=== PATIENT | male | born 1940 | race Caucasian/White ===

== ENCOUNTER 2017-01-09 06:17 | Observation (INO) | payer OTHER ==
[2017-01-09] VITALS (11 sets, daily range): BP systolic 110–167; BP diastolic 55–85; PULSE 54–78; TEMP 36.4–36.6; O2SAT 93–98; Ht 172.7 cm; Wt 118.2 kg
[~2017-01-09] VITALS: Ht 172.7 cm; Wt 118.2 kg
[2017-01-09] MEDS ORDERED: METO50TA16 PO (06:34)
[2017-01-09] MEDS ORDERED: TRAM-10 PO (06:34)
[2017-01-09] MEDS ORDERED: FOSI40TA2 PO (06:34)
[2017-01-09] MEDS ORDERED: HYG/25 PO (06:34)
[2017-01-09] MEDS ORDERED: ASPI81TA28 PO (06:34)
[2017-01-09] MEDS ORDERED: PRAV20TA PO (06:34)
[2017-01-09] MEDS ORDERED: MIDAZOLAM HCL 1 MG/ML 2ML VIAL ONE ×2 (08:22→10:17)
[2017-01-09] MEDS ORDERED: FENTANYL CITRATE INJ 50 MCG/1 ML 2 ML VIAL ONE (08:23)
[2017-01-09] MEDS ORDERED: HEPARIN SOD (PORCINE) 1000 UNIT/ML 10 ML VIAL ONE ×2 (09:09→10:16)
[2017-01-09] MEDS ORDERED: NiCARDipine HCL INJ 2.5 MG/ML 10 ML AMP ONE (09:09)
[2017-01-09] MEDS ORDERED: NITROGLYCERIN/D5W 100MCG/ML 20ML SYR ONE (09:09)
[2017-01-09] MEDS ORDERED: ADENOSINE IV SOLN 3 MG/ML 20 ML VIAL ONE (09:31)
--- NOTE | 2017-01-09 09:46 | Procedure Note ---
Pre-Mod Sedation Assessment General Date of Moderate Sedation: January 09, 2017. Vital Signs: Vital Signs Past 12 Hours Date Time Temp Pulse Resp B/P Pulse Ox O2 Delivery O2 Flow Rate FiO2 01/09/17 07:31 36.5 78 16 167/85 96 Room Air Review Cardiovascular: regular rate, rhythm, no edema, no gallop, no murmur Abdomen: normal bowel sounds, non tender, soft Lungs: chest non-tender, lungs clear, normal breath sounds Pre-Sedation Airway Assessment Oral Cavity: Dentures Short Thick Neck: Yes Hx of Sleep Apnea: Yes Smoking Status: Former Smoker Mallampati Classification: Class III ASA Classification: Class III Procedure Planning Contraindications-for Mod Sed: None Yes Notes The planned sedation has been discussed with the patient and consent obtained. I have identified the patient, determined the appropriateness of sedation and have assessed the patient immediately prior to the procedure. All medicine(s) and interventions are by my order.
--- NOTE | 2017-01-09 09:47 | Procedure Note ---
Post-Mod Sedation Assessment General Date of Moderate Sedation January 09, 2017. Vital Signs: Vital Signs Past 12 Hours Date Time Temp Pulse Resp B/P Pulse Ox O2 Delivery O2 Flow Rate FiO2 01/09/17 07:31 36.5 78 16 167/85 96 Room Air Review - Discharge Criteria Vital Signs Stable: Yes Alert/Oriented/Conversant: Yes Returned to Baseline Mental St: N/A Nausea Absent/Minimal: Yes Pain/Discomfort/Absent/Minimal: Yes Normal/Baseline Respirations: Yes Active Bleeding?: No Pt Received D/C Instructions: N/A Prescriptions Given: None Specific Proced. D/C Criteria Distal Pulses Present (Cardiac: Yes Groin site assessed-Card Cath: Yes Voided Prior To Discharge: N/A Discharged Patients Adult Escort/Transportation: N/A
--- NOTE | 2017-01-09 09:59 | Cardiac Catheterization ---
Procedure Note Procedure Date January 09, 2017. Pre-Procedure Diagnosis Angina, Cardiomyopathy AUC Score 8 Post-Procedure Diagnosis Severe CAD Procedure(s) Performed Coronary Angiography, Left Heart Cath (Start time 0838, stop time 0935, Moderate Sedation) Military Police Officer Dr. Orta Edger Hand(s) Todd AIRCRAFT MAINTENANCE MANAGER, Sedation RN Jaci Nickerson Estimated Blood Loss 5cc Medication(s) Fentanyl, Heparin, Nicardipine, Nitroglycerin, Versed, Lidocaine 1% Summary of Findings 99% prox - ostial OM2 Sequential 70% distal Lcx and proximal LPDA stenosis Proximal LAD Stent patent with diffuse 20% ISR Diffuse severe mid to distal LAD (60-90%) Known anterior and apical scar. Hemodynamics Rest Ao: 113/52/78 Final Ao: 126/57/86 LV: 123/5/17 Recommendations PCI without planned CABG Specimens None Radiation Exposure (mGy) 1905 Contrast (mls) 65 Fluids (cc crystalloids) 163 Procedural Complication(s) None Disposition Patient remained in cathlab for PCI ACC Data Cardiac Status Clinical evaluation leading to the procedure CAD Presntation: Unstable angina Anginal Classification: CCS III Heart Failure: Yes, NYHA Class: CCS III Cardiogenic Shock w/in 24Hrs: No Cardiac Arrest w/in 24Hrs: No Imaging studies past 6 months: Yes Stress studies past 6 months: No Coronary Anatomy Dominant: Left Left Main (% Stenosis): Normal LAD (% Stenosis): Ostial (0%), Proximal (Patent stent with diffuse 20% ISR), Mid (Severe diffuse mid to distal disease (60-90%)) D1 (% Stenosis): Ostial (0%), Proximal (10%), Mid (10%), Distal (10%) D2 (% Stenosis): Ostial (20%), Proximal (10%), Mid (10%), Distal (10%) Circumflex (% Stenosis): Ostial (0%), Proximal (20%), Mid (30%), Distal (60-70% ) OM1 (% Stenosis): Ostial (10%), Proximal (30% ), Mid (10%), Distal (10%) OM2 (% Stenosis): Ostial (99%), Proximal (99%) L PL1 (% Stenosis): Normal L PDA (% Stenosis): Proximal (70%), Mid (20%), Distal (10%) RCA (% Stenosis): Ostial (small non-dominant, with diffuse luminal irregularities (10%)), Mid (30%) Diagnostic Status: Elective Closure Device Percutaneous Entry Location: Femoral (Changed to femoral access due to radial artert spasm) Recommendations: PCI without planned CABG Intraprocedure Events Significant Dissection: No Perforation: No
[2017-01-09] MEDS ORDERED: CLOPIDOGREL BISULFATE 300 MG TAB PO ONE (10:56)
[2017-01-09] MEDS ORDERED: SODIUM CHLORIDE 0.9% 1000ML 1,000 ML IV SCH (11:15)
[2017-01-09] MEDS ORDERED: ONDANSETRON INJ 2 MG/ML 2 ML VIAL IV PRN ×2 (11:15→12:15)
[2017-01-09] MEDS ORDERED: ACETAMINOPHEN 325 MG TAB PO PRN ×2 (11:15→12:15)
[2017-01-09] MEDS ORDERED: TRAMADOL HCL 50 MG TAB PO PRN (11:15)
--- NOTE | 2017-01-09 11:36 | Cardiac Catheterization ---
Procedure Note Procedure Date January 09, 2017. Pre-Procedure Diagnosis CAD, Cardiomyopathy AUC Score 7 Post-Procedure Diagnosis Severe CAD, Successful PCI Procedure(s) Performed Drug Eluting Stent Records Management Specialist Dr. Viveros Soil Field Technician(s) Todd Estimated Blood Loss 20 Medication(s) Clopidogrel, Fentanyl, Heparin, Nitroglycerin, Versed Summary of Findings Indication: Exertional angina/Cardiomyopathy Access: 6Fr Right Femoral Artery Catheters: EBU 3.5 guide Findings: For full details of patients coronary anatomy please see cath report by Dr. Orta. In brief patient noted to have a small OM2 with a 99% stenosis which filled distally via left to left collaterals. Also noted to have sequential 70% lesions in his distal circumflex and L-PDA. -- PCI -- Antithrombotic therapy: Heparin Procedure: LM cannulated with EBU 3.5 guide Prowater wire passed across distal circumflex/PDA lesions into distal vessel Attempted to pass a wire into OM2 but unable to pass a BMW, whisper or Customer Training Specialist 50 wire. Decision made to forgo intervention on OM2 PDA/circumflex lesions predilated with 2.0 compliant balloon Dilated PDA lesion stented with 2.5 x 18 Resolute FOREST Dilated distal circumflex lesion stented with a 2.75 x 18 Resolute FOREST Stents post-dilated with 3.0 noncompliant balloon IC vasodilators administered for spasm Post procedure PRATEEK 3 flow, stent well expanded with minimal residual stenosis and no apparent cardiac complications. Arterial Closure: AngioSeal Summary: 1. Successful PCI of distal circumflex and L-PDA with 2 FOREST (2.75 x 18, 2.5 x 18 Resolute; post-dilated with 3.0 balloon) Recommendations: To PCU for continued monitoring Loaded with Clopidogrel 600 mg in petroleum laboratory technician Continue dual-antiplatelet therapy with ASA/Clopidogrel for at least 6 months DIOMEDES, Beta-paco, Statin per Dr. Orta. Consult cardiac Rehab Hemodynamics Rest Ao: -- Final Ao: -- LV: -- Recommendations PCI without planned CABG Specimens None Radiation Exposure (mGy) 7842 Contrast (mls) 295 Fluids (cc crystalloids) 278 Drains none Anesthesia moderate Procedural Complication(s) None Disposition PCU ACC Data Cardiac Status Clinical evaluation leading to the procedure CAD Presntation: Stable angina Anginal Classification: CCS III Heart Failure: Yes, NYHA Class: CCS II Cardiogenic Shock w/in 24Hrs: No Cardiac Arrest w/in 24Hrs: No Imaging studies past 6 months: Yes Stress studies past 6 months: No Standard Exercise Stress Test: No Stress Echocardiogram: No Stress Testing w/SPECT MPI: No Cardiac CTA: No Coronary Anatomy Dominant: Left Circumflex (% Stenosis): Distal (70) OM2 (% Stenosis): Ostial (99) L PDA (% Stenosis): Mid (70) Diagnostic Physician's Name: Saulo Orta DO Status: Elective Closure Device Percutaneous Entry Location: Radial Closure Device: Angio-Seal Recommendations: PCI without planned CABG PCI Indication: Stable Angina, Angina despite med therapy Lesion Segment Name: Distal circumflex Culprit Artery: Yes Stenosis Prior to Rx (%): 70 Chronic Total Occlusion: No IVUS: No FFR: No Pre-Procedure PRATEEK Flow: 3 Previously Treated Lesion: No Lesion Complexity: Non-High/Non-C Lesion Length (mm): 12 Thrombus Present: No Bifurcation Lesion: No Guidewire Across Lesion: Yes Guidewire: Stenosis Post-Procedure (%): 5 Post-Procedure PRATEEK Flow: 3 Device(s) Deployed: Yes Intraprocedure Events Significant Dissection: No Perforation: No
[2017-01-09] MEDS ORDERED: PATIENT'S ALLERGY INFO NEEDS ENTERED SCH (12:15)
--- NOTE | 2017-01-09 12:59 | HISTORY & PHYSICAL EXAMINATION ---
DATE OF ADMISSION: 01/09/2017 PRIMARY CARE PHYSICIAN: Dr. Fxo from [facility]. CHIEF COMPLAINT: Increasing shortness of breath on exertion for the last 1 month or so, status post cardiac catheterization and PCI. HISTORY OF PRESENT COMPLAINT: He is a 76-year-old male, obese with significant past medical history including ischemic cardiomyopathy with an EF of 35%, history of heart attack in the past and CAD. Apparently has been complaining of shortness of breath on exertion for the last 1 month or so. He gets very short of breath even after walking 50 feet and he has to take a rest. He does have some epigastric pain but denies to have any abdominal pain. He was seen by Dr. Orta the textile chemist and advised cardiac catheterization. He underwent cardiac catheterization this morning and he was noted to have severe CAD and he had 2 stents placed in his left PDA. He was advised to stay overnight and may be going home tomorrow. When asking questions to him he denies to have any chest pain at rest and exertion has some shortness of breath and epigastric pain but no nausea, no vomiting. He denies to have any increasing swelling of the legs, but he has weight gain about 7 pounds for the last 1-2 weeks. No fever, chills or rigors. No problem with urine and/or bowel habit. PAST MEDICAL HISTORY: Significant for history of heart attack in , history of cardiac stent in 2001 with ischemic cardiomyopathy with an EF documented last time 35% and chronic coronary artery disease. PAST SURGICAL HISTORY: Nothing significant except cardiac stent in 2001. FAMILY HISTORY: Nothing significant. SOCIAL HISTORY: He is . He lives with his . He does not smoke and does not drink and he has been reasonably ambulant. ALLERGIES: NKDA. MEDICATIONS: As an outpatient, he has been on aspirin 81 mg daily, [place] 25 mg tablet half tablet daily, Monopril 40 mg daily, Lopressor 50 mg twice daily, Pravachol 40 mg daily, Ultram 50 mg q. 6 hourly as needed. REVIEW OF SYSTEMS: Other systematic review is unremarkable except as mentioned in H\T\P. PHYSICAL EXAMINATION: GENERAL: On examination on the medical floor, he was not having any acute distress. VITAL SIGNS: Temperature 36.6, pulse of 62, blood pressure 122/64, saturating 92% on room air. HEAD, EYES, EARS, NOSE, AND THROAT: Unremarkable. NECK: Supple. No JVD, no bruit. CHEST: Clear to auscultate bilaterally. HEART: S1, S2. No murmur appreciated. ABDOMEN: Distended, soft, mildly tender in the epigastrium. No organomegaly. Bowel sounds present. EXTREMITIES: 1+ edema bilaterally. CENTRAL NERVOUS SYSTEM: Alert, awake, oriented x3 and no focal sensory and/or motor deficit appreciated. LABORATORY DATA: Noted today activated coagulation time is 2:29. We will get the usual labs today CBC, PRP, INR, magnesium, chest x-ray and EKG. ECHO:: on 01/01/17The primary indication after review was deemed appropriate and the examination was performed. Mildly dilated LV chamber size with normal wall thickness. Severely reduced LV systolic function, EF 1520%. Akinesis of the anteroseptal, anterior and apical fang, otherwise moderate global hypokinesis. No apical thrombus present. Grade II diastolic dysfunction. The right ventricular cavity is mildly dilated. The right ventricular systolic function is moderately reduced . Poorly visualized valvular structures but no significant stenosis or regurgitation by Doppler. Mild left atrial enlargement. Cardiac Cath::LM cannulated with EBU 3.5 guide Prowater wire passed across distal circumflex/PDA lesions into distal vessel Attempted to pass a wire into OM2 but unable to pass a BMW, whisper or [employer] 50 wire. Decision made to forgo intervention on OM2 PDA/circumflex lesions predilated with 2.0 compliant balloon Dilated PDA lesion stented with 2.5 x 18 Resolute FOREST Dilated distal circumflex lesion stented with a 2.75 x 18 Resolute FOREST Stents post-dilated with 3.0 noncompliant balloon IC vasodilators administered for spasm Post procedure PRATEEK 3 flow, stent well expanded with minimal residual stenosis and no apparent cardiac complications. IMPRESSION AND PLAN: 1. Severe coronary artery disease. Successful PCI of distal circumflex and L-PDA with 2 FOREST (2.75 x 18, 2.5 x 18 Resolute; post-dilated with 3.0 balloon) He got a loading dose of Plavix and he will have aspirin and Plavix for 6 months down the line. He already been on beta paco, DIOMEDES inhibitor, and statin. He will be seen by cardiology, most likely he will be going home tomorrow. 2. Ischemic cardiomyopathy with EF of 35%, recent echo shows EF gone down to 15 to 20% with increasing symptoms. He is status post cath and stent as above. Hopefully, his symptoms will improve gradually. 3. Gastrointestinal prophylaxis. He does have some epigastric discomfort. Could be angina equivalent. Will give some Protonix and continue with that. 4. Deep venous thrombosis prophylaxis with SCDs and increase ambulation. The patient will be going home tomorrow. 5. CODE STATUS. HE WILL BE A FULL CODE. In my clinical judgment, the beneficiary meets criteria as per CMS for 2 midnight admission in the hospital. AMANDA
[2017-01-09 13:10] LABS: HEMATOCRIT 44.7 % (42-52); MEAN CELL VOLUME 94.1 fL (80-100); MEAN PLATELET VOLUME 10.7 fL (7.4-10.4); PLATELET COUNT 176 K/uL (130-400); RED BLOOD COUNT 4.75 M/uL (4.7-6.1); WHITE BLOOD COUNT 7.11 K/uL (4.8-10.8)
[2017-01-09] MEDS ORDERED: PANTOprazole SOD 40 MG TAB PO ONE (13:15)
[2017-01-09 13:24] LABS: INR 1.1 (0.9-1.1); PROTHROMBIN TIME (PATIENT) 11.4 SECONDS (9.0-12.0)
[2017-01-09 13:37] LABS: BUN/CREATININE RATIO 14.5 (10-20); CALCIUM 9.5 mg/dl (8.5-10.1); CREATININE 1.4 mg/dl (0.60-1.40); MAGNESIUM 1.5 mg/dl (1.8-2.4); POTASSIUM 3.9 mmol/L (3.5-5.1)
--- NOTE | 2017-01-09 13:42 | DIAGNOSTIC IMAGING REPORT ---
CHEST ONE VIEW PORTABLE HISTORY: Short of breath. COMPARISON: None. FINDINGS: No pleural effusions. No pneumothorax. Low lung volumes. The heart is mildly enlarged. No focal lung consolidations to suggest pneumonia. Mild pulmonary vascular congestion without overt edema. Bibasilar linear densities favor subsegmental atelectasis. IMPRESSION: Cardiomegaly. Mild pulmonary vascular congestion without overt edema. Electronically signed by: Dc Oh M.D. 01/09/2017 1:41 PM Dictated Date/Time: 01/09/2017 1:37 PM
[2017-01-09] MEDS ORDERED: IV FLUIDS COMPLETED PRN ×2 (14:00→14:15)
[2017-01-09] MEDS: METOPROLOL TARTRATE 50 MG TAB PO SCH (20:54)
[2017-01-10] VITALS: BP 132/73; PULSE 78; TEMP 36.9; O2SAT 98
[2017-01-10 03:20] VITALS: BP 125/67; PULSE 68; TEMP 36.9; O2SAT 96
[2017-01-10 06:35] LABS: BASO % 0.3 %; BASO ABS # 0.02 K/uL (0-0.2); COMPLETE YES; EOS % 2.3 %; HEMATOCRIT 41.6 % (42-52); IG% 0.1 %; LYMPH ABS # 1.83 K/uL (1.2-3.4); MEAN CELL VOLUME 93.3 fL (80-100); MEAN CORPUSCULAR HEMOGLOBIN 30.9 pg (25-34); MEAN CORPUSCULAR HGB CONC 33.2 g/dl (32-36); MEAN PLATELET VOLUME 10.4 fL (7.4-10.4); MONO % 8.2 %; NEUT % 64.1 %; PLATELET COUNT 167 K/uL (130-400); RED BLOOD COUNT 4.46 M/uL (4.7-6.1); WHITE BLOOD COUNT 7.31 K/uL (4.8-10.8)
[2017-01-10 07:10] LABS: BUN/CREATININE RATIO 12.9 (10-20); CALCIUM 9.6 mg/dl (8.5-10.1); CREATININE 1.5 mg/dl (0.60-1.40); POTASSIUM 3.5 mmol/L (3.5-5.1)
[2017-01-10 07:44] VITALS: BP 116/69; PULSE 67; TEMP 36.5; O2SAT 94
[2017-01-10] MEDS: METOPROLOL TARTRATE 50 MG TAB PO SCH (07:50)
[2017-01-10 08:00] VITALS: O2SAT 94
--- NOTE | 2017-01-10 08:34 | Progress Note ---
Subjective Date of Service: January 10, 2017. Subjective Pt evaluation today including: conversation w/ patient, physical exam, lab review, review of studies, review of inpatient medication list Saw/examined the patient in room 218 He states he's doing well, no chest pain, no dyspnea at this time, has been ambulating in the room No palpitations, no groin pain Review of Systems Constitutional: No chills, No fever, No weakness Respiratory: No cough, No dyspnea on exertion (improved), No shortness of breath (improved), No sputum, No wheezing Cardiac: No chest pain, No edema, No palpitations Abdomen: No diarrhea, No nausea, No pain, No vomiting Heme: No abnormal bleeding/bruising Medications Current Inpatient Medications Medications (Trade) Dose Ordered Sig/[place] Route Start Time Stop Time Status Last Admin Dose Admin Clopidogrel Bisulfate (plAVix TAB) 75 mg QAM PO 01/10/17 09:00 02/09/17 08:59 01/10/17 07:49 75 MG Aspirin (Ecotrin Tab) 81 mg DAILY PO 01/10/17 09:00 02/09/17 08:59 01/10/17 07:49 81 MG Chlorthalidone (Hygroton Tab) 12.5 mg DAILY PO 01/10/17 09:00 02/09/17 08:59 01/10/17 07:50 12.5 MG Metoprolol Tartrate (Lopressor Tab) 50 mg BID PO 01/09/17 21:00 02/08/17 20:59 01/10/17 07:50 50 MG Pravastatin Sodium (Pravachol Tab) 40 mg DAILY PO 01/10/17 09:00 02/09/17 08:59 01/10/17 07:49 40 MG Tramadol HCl (Ultram Tab) 50 mg Q6 PRN PO 01/09/17 11:15 02/08/17 11:14 Lisinopril (Zestril Tab) 40 mg DAILY PO 01/10/17 09:00 02/09/17 08:59 01/10/17 07:49 40 MG Acetaminophen (Tylenol Tab) 650 mg Q4H PRN PO 01/09/17 12:15 02/08/17 12:14 Ondansetron HCl (Zofran Inj) 4 mg Q6H PRN IV 01/09/17 12:15 02/08/17 12:14 Pantoprazole Sodium (Protonix Tab) 40 mg QAM PO 01/10/17 09:00 02/09/17 08:59 01/10/17 07:49 40 MG Miscellaneous (Iv Fluids Completed) 1 ea PRN PRN N/A 01/09/17 14:00 01/09/18 13:59 Miscellaneous (Iv Fluids Completed) 1 ea PRN PRN N/A 01/09/17 14:15 01/09/18 14:14 Objective Vital Signs Date Time Temp Pulse Resp B/P Pulse Ox O2 Delivery O2 Flow Rate FiO2 01/10/17 07:44 36.5 67 16 116/69 94 01/10/17 04:00 Room Air 01/10/17 03:20 36.9 68 20 125/67 96 Room Air 01/10/17 00:00 36.9 78 17 132/73 98 Room Air 01/10/17 00:00 Room Air 01/09/17 20:00 Room Air 01/09/17 19:28 36.5 65 18 115/55 98 Room Air 01/09/17 16:00 Room Air 01/09/17 15:13 36.5 60 16 110/68 98 Room Air 01/09/17 13:01 59 18 129/56 98 01/09/17 12:30 36.4 54 16 142/81 98 Room Air 01/09/17 12:00 36.4 62 16 122/69 98 Room Air 01/09/17 11:45 36.4 70 16 115/75 96 Room Air 01/09/17 11:30 36.4 68 16 118/71 95 Room Air 01/09/17 11:26 93 Room Air 01/09/17 11:21 36.6 62 16 122/64 62 01/09/17 11:15 36.4 62 16 122/64 96 Room Air 01/09/17 11:07 60 16 121/88 95 Room Air 01/09/17 10:57 60 16 135/88 95 Room Air Physical Exam General Appearance: no apparent distress Respiratory/Chest: chest non-tender, lungs clear, normal breath sounds, no respiratory distress, no accessory muscle use Cardiovascular: regular rate, rhythm, no edema, no murmur Abdomen: normal bowel sounds, non tender, soft Extremities: normal range of motion, non-tender, normal inspection, no pedal edema, no calf tenderness, + pertinent finding (+R groin, healing well) Neurologic/Psychiatric: no motor/sensory deficits, alert, normal mood/affect Laboratory Results Last 24 Hours Test 01/09/17 09:29 01/09/17 09:44 01/09/17 10:08 01/09/17 10:45 Kaolin Activated Coagulation Time 173 SECONDS 229 SECONDS 219 SECONDS 229 SECONDS Test 01/09/17 13:00 01/10/17 06:25 White Blood Count 7.11 K/uL 7.31 K/uL Red Blood Count 4.75 M/uL 4.46 M/uL Hemoglobin 15.2 g/dL 13.8 g/dL Hematocrit 44.7 % 41.6 % Mean Corpuscular Volume 94.1 fL 93.3 fL Mean Corpuscular Hemoglobin 32.0 pg 30.9 pg Mean Corpuscular Hemoglobin Concent 34.0 g/dl 33.2 g/dl RDW Standard Deviation 43.0 fL 42.2 fL RDW Coefficient of Variation 12.5 % 12.3 % Platelet Count 176 K/uL 167 K/uL Mean Platelet Volume 10.7 fL 10.4 fL Prothrombin Time 11.4 SECONDS Prothromb Time International Ratio 1.1 Sodium Level 137 mmol/L 137 mmol/L Potassium Level 3.9 mmol/L 3.5 mmol/L Chloride Level 106 mmol/L 102 mmol/L Carbon Dioxide Level 23 mmol/L 27 mmol/L Anion Gap 8.0 mmol/L 8.0 mmol/L Blood Urea Nitrogen 20 mg/dl 19 mg/dl Creatinine 1.40 mg/dl 1.50 mg/dl Est Creatinine Clear Calc Drug Dose 53.3 ml/min 50.7 ml/min Estimated GFR () 55.4 51.0 Estimated GFR (Non- 47.8 44.0 BUN/Creatinine Ratio 14.5 12.9 Random Glucose 130 mg/dl 108 mg/dl Calcium Level 9.5 mg/dl 9.6 mg/dl Magnesium Level 1.5 mg/dl Neutrophils (%) (Auto) 64.1 % Lymphocytes (%) (Auto) 25.0 % Monocytes (%) (Auto) 8.2 % Eosinophils (%) (Auto) 2.3 % Basophils (%) (Auto) 0.3 % Neutrophils # (Auto) 4.68 K/uL Lymphocytes # (Auto) 1.83 K/uL Monocytes # (Auto) 0.60 K/uL Eosinophils # (Auto) 0.17 K/uL Basophils # (Auto) 0.02 K/uL Immature Granulocyte % (Auto) 0.1 % Immature Granulocyte # (Auto) 0.01 K/uL Assessment and Plan This is a 76 year old male with a PMH of severe coronary artery disease, severe ischemic cardiomyopathy with LVEF ~ 15-20%, HTN presents for cardiac catheterization with stents x2 Coronary Artery Disease s/p FOREST x2 to posterior descending and circumflex arteries will be on aspirin and Plavix continue statin, b-paco, DIOMEDES-I further management as per cardiology Severe Ischemic Cardiomyopathy Severe LV Systolic Dysfunction echo performed earlier in December 2016 shows an EF of 15-20% hopefully, will improve with stenting f/u with EP as outpatient HTN blood pressure is stable continue DIOMEDES-I, b-paco, chlorthalidone DVT ppx SCDs + ambulation FULL CODE d/c home today (01/10) if okay with cardiology
[2017-01-10] MEDS ORDERED: ASPIRIN 81 MG ECTAB PO SCH (09:00)
[2017-01-10] MEDS ORDERED: CHLORTHALIDONE 25 MG TAB PO SCH (09:00)
[2017-01-10] MEDS ORDERED: PRAVASTATIN SOD 20 MG TAB PO SCH (09:00)
[2017-01-10] MEDS ORDERED: PANTOprazole SOD 40 MG TAB PO SCH (09:00)
[2017-01-10] MEDS ORDERED: CLOPIDOGREL BISULFATE 75 MG TAB PO SCH (09:00)
[2017-01-10] MEDS ORDERED: LISINOPRIL 40 MG TAB PO SCH (09:00)
--- NOTE | 2017-01-10 11:08 | History & Physical Bridge Note ---
H&P Re-Evaluation Bridge Note: I have examined the patient, reviewed the History & Physical and in the interval since the performance of the History & Physical I have noted the following changes of clinical significance: No changes noted
[2017-01-10] MEDS ORDERED: PRT40 PO (11:27)
[2017-01-10] MEDS ORDERED: LSX20 PO ×2 (11:27→11:52)
[2017-01-10] MEDS ORDERED: PLV75 PO ×2 (11:27→11:52)
[2017-01-10] MEDS ORDERED: MGNO400 PO ×2 (11:27→11:52)
[2017-01-10 11:28] VITALS: BP 115/70; PULSE 69; TEMP 36.9; O2SAT 99
--- NOTE | 2017-01-10 11:28 | PROGRESS NOTE ---
DATE: 01/10/2017 CARDIOLOGY FOLLOWUP SUBJECTIVE: Mr. Malone is a 76-year-old gentleman who was admitted for observation yesterday. Diagnostic cardiac catheterization demonstrated severe obtuse marginal branch vessel disease as well as distal left circumflex and posterior descending artery stenosis. The obtuse marginal could not be intervened due to technical difficulties. He received 2 drug-eluting stents to the distal left circumflex and proximal left posterior descending artery, respectively. Tolerated the procedure well. No complications. He has felt well overnight. Denies chest pain or unusual shortness of breath this morning. Mild lower extremity edema is noted. No groin hematoma or discomfort. REVIEW OF SYSTEMS: The pertinent positives noted above. A 4-system review including cardiovascular, pulmonary, gastroenterologic, and neurologic systems otherwise negative. MEDICATIONS: Reviewed via EMR. Please see list for details. LABORATORY DATA: White blood cell count 7.31, hemoglobin is 13.8, platelet count is 167. Sodium 137, potassium 3.5, chloride 102, CO2 is 19, creatinine is 1.50. Magnesium is 1.4. PHYSICAL EXAMINATION: VITAL SIGNS: Temperature is 36.5 degrees centigrade, pulse 67 beats per minute and regular, respiratory rate 16 breaths per minute, blood pressure is 116/69, SAO2 is 94% on room air. GENERAL: NAD, obese, awake, alert and oriented x3. THROAT: His mucous membranes are moist. No scleral icterus. Conjunctivae are pink. NECK: Supple No JVD or HJR. No carotid bruit. HEART: Regular with a normal S1 and S2. A soft 1/6 systolic ejection murmur heard best at the right second intercostal space. ABDOMEN: Soft, nontender. No rebound or guarding. Normal bowel sounds. EXTREMITIES: Warm and dry. No clubbing, cyanosis. There is +1 bilateral pedal edema. NEUROLOGIC: Demonstrates no focal deficit. FINAL IMPRESSION: 1. A 76-year-old male admitted for diagnostic catheterization due to ischemic cardiomyopathy and exertional angina. The patient received 2 drug-eluting stents to the distal circumflex and proximal left posterior descending artery respectively. The procedure was uncomplicated. 2. Ischemic cardiomyopathy, ejection fraction of 15-20% and elevated left ventricular end diastolic pressure. The patient appears compensated with chronic class 2-3 symptoms. 3. History of chronic coronary artery disease, prior anterior wall myocardial infarction and anterior apical scarring, on echocardiogram. 4. Dyslipidemia. 5. Hypertension. 6. Chronic kidney disease stage III. PLAN AND RECOMMENDATIONS: Discussed the importance of continuing Plavix uninterrupted for a minimum of 1 year post-PCI and aspirin lifelong. Hydrochlorothiazide will be discontinued in favor of furosemide 20 mg daily given elevated left ventricular end diastolic pressure noted on cardiac catheterization. Other cardiovascular medications will be continued as previously ordered. The patient is stable for discharge. Post-catheterization restrictions reviewed. He may not drive for 2 days. No lifting more than 5 pounds for an additional 5 days. The patient voices understanding and agreement. He has a scheduled followup appointment on January 16. AMANDA
--- NOTE | 2017-01-10 11:36 | Discharge Instructions ---
Discharge Instructions Date of Service January 10, 2017. Admission Reason for Admission: Chronic Coronary Artery Disease Discharge Discharge Diagnosis / Problem: CAD, ischemic cardiomyopathy, severe LVEF systolic dysfunction Discharge Goals Goal(s): Decrease discomfort, Improve function, Diagnostic testing, Therapeutic intervention Activity Recommendations Activity Limitations: per Instructions/Follow-up section Lifting Limitations: no more than 5 pounds (x5 days) Exercise/Sports Limitations: as tolerated May Resume Sexual Activity: when tolerated Shower/Bathe: no limitations Driving or Machine Use: two days after discharge . Instructions / Follow-Up Instructions / Follow-Up Please follow-up with Dr. Fox - you will get a phone call with a follow-up appointment date and time Please follow-up with cardiology on January 16 as scheduled You must stay on Plavix for one year without stopping Your chlorthalidone will be stopped and you will be started on Furosemide 20mg daily Take magnesium tablets daily primary care should check potassium and magnesium levels as an outpatient No driving for two days Current Hospital Diet Patient's current hospital diet: AHA Diet (Heart Healthy) Discharge Diet Recommended Diet: AHA Diet (Heart Healthy) Pending Studies Studies pending at discharge: no Medical Emergencies . Who to Call and When: Medical Emergencies: If at any time you feel your situation is an emergency, please call 911 immediately. . Non-Emergent Contact Non-Emergency issues call your: Primary Care Provider, Donor Relations Manager . . "Provider Documentation" section prepared by Yola Uriarte. . VTE Core Measure Inpt VTE Proph given/why not?: SCD's
[2017-01-10] MEDS ORDERED: FOSI40TA2 PO (11:52)
[2017-01-10] MEDS ORDERED: PRAV20TA PO (11:52)
[2017-01-10] MEDS ORDERED: ASPI81TA28 PO (11:52)
[2017-01-10] MEDS ORDERED: METO50TA16 PO (11:52)
--- NOTE | 2017-01-10 11:54 | Discharge Summary ---
Discharge Summary Date of Service January 10, 2017. Discharge Summary Admission Date: January 09, 2017 at 11:24 Discharge Date: January 10, 2017 Discharge Disposition: Home Principal Diagnosis: CAD s/p FOREST x2 Ischemic Cardiomyopathy Severe LVEF systolic dysfunction HTN Medication Reconciliation New Medications: Clopidogrel Bisulfate (Clopidogrel) 75 Mg Tab 75 MG PO QAM for 30 Days, #30 TAB Furosemide (Furosemide) 20 Mg Tab 20 MG PO QAM for 30 Days, #30 TAB Magnesium Oxide (Magnesium-Oxide) 400 Mg Tab 400 MG PO DAILY for 30 Days, #30 TAB Continued Medications: Aspirin (Aspirin Ec) 81 Mg Tab 81 MG PO DAILY for 30 Days, #30 TABS (This prescription has been renewed) Fosinopril Sodium (Monopril) 40 Mg Tab 40 MG PO DAILY for 30 Days, #30 TAB (This prescription has been renewed) Metoprolol Tartrate (Lopressor) (Lopressor) 50 Mg Tab 1 TAB PO BID for 30 Days, #60 TAB 5 Refills (This prescription has been renewed) Pravastatin (Pravachol ) 20 Mg Tab 40 MG PO DAILY for 30 Days, #60 TAB (This prescription has been renewed) Tramadol (Ultram) 50 Mg Tab 1 TAB PO Q6 PRN for Pain for 30 Days, #120 TAB Discontinued Medications: Chlorthalidone (Hygroton) 25 Mg Tab 0.5 TAB PO DAILY for 30 Days, #15 TAB 5 Refills Admission Information Physical Exam (per Admitting): DATE OF ADMISSION: 01/09/2017 PRIMARY CARE PHYSICIAN: Dr. Fox from [facility]. CHIEF COMPLAINT: Increasing shortness of breath on exertion for the last 1 month or so, status post cardiac catheterization and PCI. HISTORY OF PRESENT COMPLAINT: He is a 76-year-old male, obese with significant past medical history including ischemic cardiomyopathy with an EF of 35%, history of heart attack in the past and CAD. Apparently has been complaining of shortness of breath on exertion for the last 1 month or so. He gets very short of breath even after walking 50 feet and he has to take a rest. He does have some epigastric pain but denies to have any abdominal pain. He was seen by Dr. Orta the sterile preparation technician and advised cardiac catheterization. He underwent cardiac catheterization this morning and he was noted to have severe CAD and he had 2 stents placed in his left PDA. He was advised to stay overnight and may be going home tomorrow. When asking questions to him he denies to have any chest pain at rest and exertion has some shortness of breath and epigastric pain but no nausea, no vomiting. He denies to have any increasing swelling of the legs, but he has weight gain about 7 pounds for the last 1-2 weeks. No fever, chills or rigors. No problem with urine and/or bowel habit. PAST MEDICAL HISTORY: Significant for history of heart attack in , history of cardiac stent in 2001 with ischemic cardiomyopathy with an EF documented last time 35% and chronic coronary artery disease. PAST SURGICAL HISTORY: Nothing significant except cardiac stent in 2001. FAMILY HISTORY: Nothing significant. SOCIAL HISTORY: He is . He lives with his . He does not smoke and does not drink and he has been reasonably ambulant. ALLERGIES: NKDA. MEDICATIONS: As an outpatient, he has been on aspirin 81 mg daily, Hygroton 25 mg tablet half tablet daily, Monopril 40 mg daily, Lopressor 50 mg twice daily, Pravachol 40 mg daily, Ultram 50 mg q. 6 hourly as needed. REVIEW OF SYSTEMS: Other systematic review is unremarkable except as mentioned in H\T\P. PHYSICAL EXAMINATION: GENERAL: On examination on the medical floor, he was not having any acute distress. VITAL SIGNS: Temperature 36.6, pulse of 62, blood pressure 122/64, saturating 92% on room air. HEAD, EYES, EARS, NOSE, AND THROAT: Unremarkable. NECK: Supple. No JVD, no bruit. CHEST: Clear to auscultate bilaterally. HEART: S1, S2. No murmur appreciated. ABDOMEN: Distended, soft, mildly tender in the epigastrium. No organomegaly. Bowel sounds present. EXTREMITIES: 1+ edema bilaterally. CENTRAL NERVOUS SYSTEM: Alert, awake, oriented x3 and no focal sensory and/or motor deficit appreciated. LABORATORY DATA: Noted today activated coagulation time is 2:29. We will get the usual labs today CBC, PRP, INR, magnesium, chest x-ray and EKG. ECHO:: on 01/01/17The primary indication after review was deemed appropriate and the examination was performed. Mildly dilated LV chamber size with normal wall thickness. Severely reduced LV systolic function, EF 1520%. Akinesis of the anteroseptal, anterior and apical fang, otherwise moderate global hypokinesis. No apical thrombus present. Grade II diastolic dysfunction. The right ventricular cavity is mildly dilated. The right ventricular systolic function is moderately reduced . Poorly visualized valvular structures but no significant stenosis or regurgitation by Doppler. Mild left atrial enlargement. Cardiac Cath::LM cannulated with EBU 3.5 guide P[place]ater wire passed across distal circumflex/PDA lesions into distal vessel Attempted to pass a wire into OM2 but unable to pass a BMW, whisper or System Support Developer 50 wire. Decision made to forgo intervention on OM2 PDA/circumflex lesions predilated with 2.0 compliant balloon Dilated PDA lesion stented with 2.5 x 18 Resolute FOREST Dilated distal circumflex lesion stented with a 2.75 x 18 Resolute FOREST Stents post-dilated with 3.0 noncompliant balloon IC vasodilators administered for spasm Post procedure PRATEEK 3 flow, stent well expanded with minimal residual stenosis and no apparent cardiac complications. IMPRESSION AND PLAN: 1. Severe coronary artery disease. Successful PCI of distal circumflex and L-PDA with 2 FOREST (2.75 x 18, 2.5 x 18 Resolute; post-dilated with 3.0 balloon) He got a loading dose of Plavix and he will have aspirin and Plavix for 6 months down the line. He already been on beta paco, DIOMEDES inhibitor, and statin. He will be seen by cardiology, most likely he will be going home tomorrow. 2. Ischemic cardiomyopathy with EF of 35%, recent echo shows EF gone down to 15 to 20% with increasing symptoms. He is status post cath and stent as above. Hopefully, his symptoms will improve gradually. 3. Gastrointestinal prophylaxis. He does have some epigastric discomfort. Could be angina equivalent. Will give some Protonix and continue with that. 4. Deep venous thrombosis prophylaxis with SCDs and increase ambulation. The patient will be going home tomorrow. 5. CODE STATUS. HE WILL BE A FULL CODE. In my clinical judgment, the beneficiary meets criteria as per CMS for 2 midnight admission in the hospital. Hospital Course This is a 76 year old male with a PMH of severe coronary artery disease, severe ischemic cardiomyopathy with LVEF ~ 15-20%, HTN presents for cardiac catheterization with stents x2 Coronary Artery Disease s/p FOREST x2 to posterior descending and circumflex arteries will be on aspirin and Plavix continue statin, b-paco, DIOMEDES-I further management as per cardiology Severe Ischemic Cardiomyopathy Severe LV Systolic Dysfunction echo performed earlier in December 2016 shows an EF of 15-20% hopefully, will improve with stenting f/u with EP as outpatient HTN blood pressure is stable continue DIOMEDES-I, b-paco chlorthalidone stopped, Lasix started DVT ppx SCDs + ambulation FULL CODE d/c home today (01/10) if okay with cardiology Total time spent on discharge = 40 minutes This includes examination of the patient, discharge planning, medication reconciliation, and communication with other providers. Discharge Instructions Please follow-up with Dr. Fox - you will get a phone call with a follow-up appointment date and time Please follow-up with cardiology on January 16 as scheduled You must stay on Plavix for one year without stopping Your chlorthalidone will be stopped and you will be started on Furosemide 20mg daily Take magnesium tablets daily primary care should check potassium and magnesium levels as an outpatient No driving for two days
[2017-01-10 11:56] VITALS: BP 115/70; PULSE 69; TEMP 36.9; O2SAT 99
[2017-01-10] MEDS ORDERED: MAGNESIUM OXIDE 400 MG TAB PO ONE (12:15)
[2017-01-11] MEDS ORDERED: FUROSEMIDE 20 MG TAB PO SCH (09:00)
[2017-01-11] MEDS ORDERED: MAGNESIUM OXIDE 400 MG TAB PO SCH (09:00)
[2017-04-17] MEDS ORDERED: ASPI81TA28 PO (14:14)
[2017-04-17] MEDS ORDERED: ROSU20TA PO (14:14)
[2017-04-17] MEDS ORDERED: SPIR25TA PO (14:14)
[2017-04-17] MEDS ORDERED: CLOP1TAB15 PO (14:14)
[2017-04-17] MEDS ORDERED: METO100T14 PO (14:14)
[2017-04-17] MEDS ORDERED: MAGN400T6 PO (14:14)
[2017-04-17] MEDS ORDERED: FOSI40TA2 PO (14:14)
== END 2017-01-10 12:20 | disposition home or self-care (01) ==
LOC: ENRESERVTM → ENRESERVDT → C.CATH 06:17 → C.2T 11:24
PROVIDERS: ADMIT Internal Medicine; ATTEND Family Medicine
DX: I25.110 Atherosclerotic heart disease of native coronary artery with unstable angina pectoris (principal); I25.5 Ischemic cardiomyopathy; I12.9 Hypertensive chronic kidney disease with stage 1 through stage 4 chronic kidney disease, or unspecified chronic kidney disease; N18.3 Chronic kidney disease, stage 3 (moderate); E78.5 Hyperlipidemia, unspecified; E66.9 Obesity, unspecified; G47.30 Sleep apnea, unspecified; I25.2 Old myocardial infarction; Z79.82 Long term (current) use of aspirin

== ENCOUNTER 2017-05-07 06:02 | Observation (INO) | payer OTHER ==
[2017-04-17 14:14] VITALS: BMI 38.0
[~2017-05-07] VITALS: Ht 172.7 cm; Wt 110.4 kg
[2017-05-07] VITALS (7 sets, daily range): BP systolic 112–164; BP diastolic 69–84; PULSE 65–72; TEMP 36.3–37; O2SAT 94–97; Ht 172.7 cm; Wt 110.4 kg
[~2017-05-07 06:02] MED LIST: ASPI81TA28 PO; CEFAZOLIN 2000 MG/60 ML D5W 60 ML IV SCH; CLOP1TAB15 PO; FOSI40TA2 PO; LACTATED RINGER'S 1000ML 1,000 ML IV SCH; LACTATED RINGER'S 1000ML IV SCH; MAGN400T6 PO; METO100T14 PO; ROSU20TA PO; SPIR25TA PO; TRAM-10 PO
[2017-05-07] MEDS ORDERED: PROPOFOL IV EMULSION 10 MG/ML 100 ML VIAL IV ONE (07:32)
[2017-05-07] MEDS ORDERED: BACITRACIN 50000 UNIT VIAL ONE (07:37)
[2017-05-07] MEDS ORDERED: LIDOCAINE HCL 1% 20 ML VIAL ONE (07:37)
[2017-05-07] MEDS ORDERED: MIDAZOLAM HCL 1 MG/ML 2ML VIAL ONE (07:51)
[2017-05-07] MEDS ORDERED: EpHEDrine SULFATE 50MG/5ML SYR ONE (07:51)
[2017-05-07] MEDS ORDERED: PHENYLEPHRINE 100MCG/ML 5ML SYR ONE (07:51)
[2017-05-07] MEDS ORDERED: LIDOCAINE HCL 2% 2 ML VIAL (20MG/ML) ONE (07:51)
[2017-05-07] MEDS ORDERED: FENTANYL CITRATE INJ 50 MCG/1 ML 2 ML VIAL ONE (07:51)
[2017-05-07] MEDS ORDERED: PROPOFOL IV EMULSION 10 MG/ML 20 ML VIAL IV ONE (07:51)
[2017-05-07] MEDS ORDERED: EpHEDrine SULFATE INJ 50 MG/ML AMP IV PRN (08:00)
[2017-05-07] MEDS ORDERED: ONDANSETRON INJ 2 MG/ML 2 ML VIAL IV PRN (08:00)
[2017-05-07] MEDS ORDERED: FENTANYL CITRATE INJ 50 MCG/1 ML 2 ML VIAL IV PRN (08:00)
[2017-05-07] MEDS ORDERED: ATROPINE SULFATE 0.1 MG/ML 5ML SYR IV PRN (08:00)
[2017-05-07] MEDS ORDERED: HYDROmorphone INJ 1 MG/ML SYR IV PRN (08:00)
--- NOTE | 2017-05-07 11:10 | [facility] Post Operative Brief Note ---
Immediate Operative Summary Operative Date May 07, 2017. Pre-Operative Diagnosis ICM, LBBB, CHRONIC SYSTOLIC HEART FAILURE NYHA CLASS III Post-Operative Diagnosis SAME Procedure(s) Performed BIVENTRICULAR RATE RESPONSIVE ICD IMPLANT UNDER FLUROSCOPIC GUIDANCE WITH PERIPHERAL VENOGRAM Surgeon EDGAR HICKEY Boating Safety Officer Surgeon(s) NONE Estimated Blood Loss <15CC Findings SEE OFFICIAL REPORT Fluids (cc crystalloids) 450CC Specimens NONE Drains NONE Anesthesia 2MG VERSED, 100MCG FENTANYL, 1100MG PROPOFOL Complication(s) None Disposition PCU
--- NOTE | 2017-05-07 11:13 | Discharge Instructions ---
Discharge Instructions Date of Service May 07, 2017. Admission Reason for Admission: Ischedmic Cardiomyopathy Discharge Discharge Diagnosis / Problem: ICM, LBBB, CHRONIC SYSTOLIC HEART FAILURE-NYHA CLASS III Discharge Goals Goal(s): Improve function Activity Recommendations Activity Limitations: as noted below Lifting Limitations: no more than 10 pounds (DO NOT LIFT THE LEFT ELBOW OVER THE LEFT SHOULDER FOR 1 MONTH; DO NOT LIFT MORE THAN 10 POUNDS WITH THE LEFT ARM FOR 2 WEEKS) May Resume Sexual Activity: after two weeks Shower/Bathe: tomorrow Driving or Machine Use: resume 1 day after discharge . Instructions / Follow-Up Instructions / Follow-Up ACTIVITY RECOMMENDATIONS: * Do not raise affected arm over head for 4 weeks. SPECIAL CARE INSTRUCTIONS: * If bleeding occurs, apply direct pressure to area for 5 minutes. * Call your doctor if you have severe pain, fever, drainage or bleeding at site. * Keep dry for 24hours. * Keep any scheduled doctor's appointment. * Implant Card - hand held device with website information given. SKIN IRRITATION: * You may experience some redness and/or swelling in the area where radiation was administered. If any skin irritation occurs, please contact your family physician. FOLLOW UP VISIT: Keep any scheduled doctor appointments. Current Hospital Diet Patient's current hospital diet: Low Sodium Diet (2gm Na), AHA Diet (Heart Healthy) Discharge Diet Recommended Diet: AHA Diet (Heart Healthy), Low Sodium Diet (2gm Na) Procedures Procedures Performed: BIVENTRICULAR RATE RESPONSIVE ICD IMPLANT UNDER FLUROSCOPIC GUIDANCE WITH PERIPHERAL VENOGRAM Pending Studies Studies pending at discharge: no Medical Emergencies . Who to Call and When: Medical Emergencies: If at any time you feel your situation is an emergency, please call 911 immediately. . Non-Emergent Contact Non-Emergency issues call your: Price Lister . . "Provider Documentation" section prepared by Luzmaria Simpson. . VTE Core Measure Inpt VTE Proph given/why not?: Howie Clayton
[2017-05-07] MEDS ORDERED: ACETAMINOPHEN 325 MG TAB PO PRN (11:15)
[2017-05-07] MEDS ORDERED: TRAMADOL HCL 50 MG TAB PO PRN (11:15)
--- NOTE | 2017-05-07 11:20 | Discharge Summary ---
Discharge Summary Date of Service May 07, 2017. Discharge Summary Admission Date: Discharge Date: May 08, 2017 Discharge Disposition: Home Principal Diagnosis: ICM EF 25% LBBB CHRONIC SYSTOLIC HEART FAILURE, NYHA CLASS III Secondary Diagnoses/Problems: CAD HTN HLD CKD STAGE III Procedures: BIVENTRICULAR ICD IMPLANT Medication Reconciliation Continued Medications: Aspirin (Aspirin Ec) 81 Mg Tab 81 MG PO QAM PT WILL FOLLOW SURGEON INSTRUCTION Clopidogrel (Plavix) 75 Mg Tab 75 MG PO QAM, TAB PT WILL FOLLOW SURGEON INSTRUCTIONS Fosinopril Sodium (Monopril) 40 Mg Tab 40 MG PO QPM, TAB PT WILL FOLLOW SURGEON INSTRUCTIONS Magnesium Oxide (Mag-Ox) 400 Mg Tab 400 MG PO QPM, TAB Metoprolol Tartrate (Lopressor) (Lopressor) 100 Mg Tab 100 MG PO QPM, TAB PT WILL FOLLOW SURGEON INSTRUCTIONS Rosuvastatin Calcium (Crestor) 20 Mg Tab 20 MG PO QPM, TAB Spironolactone (Aldactone) 25 Mg Tab 12.5 MG PO Q2D, TAB Tramadol (Ultram) 50 Mg Tab 1 TAB PO Q6 PRN for Pain for 30 Days, #120 TAB Admission Information Physical Exam (per Admitting): aaox3, nad supple nrl s1/s2, no murmur cta b/l no w/r/r soft, nt trace edema b/l le no focal deficits skin intact Hospital Course pt admitted for elective biv ICD implant due to CAD, ICM, LBBB, and chronic systolic HF. Pt underwent procedure without any complications. Monitored overnight and discharged home in stable condition. Total time spent on discharge = 35 minutes This includes examination of the patient, discharge planning, medication reconciliation, and communication with other providers. Discharge Instructions ACTIVITY RECOMMENDATIONS: * Do not raise affected arm over head for 4 weeks. SPECIAL CARE INSTRUCTIONS: * If bleeding occurs, apply direct pressure to area for 5 minutes. * Call your doctor if you have severe pain, fever, drainage or bleeding at site. * Keep dry for 24 hours. * Keep any scheduled doctor's appointment. * Implant Card - hand held device with website information given. SKIN IRRITATION: * You may experience some redness and/or swelling in the area where radiation was administered. If any skin irritation occurs, please contact your family physician. FOLLOW UP VISIT: Keep any scheduled doctor appointments.
--- NOTE | 2017-05-07 11:27 | Anesthesiology Progress Note ---
Anesthesia Post Op Note Date & Time May 07, 2017 at 11:27 Vital Signs Pain Intensity: 0 Vital Signs Past 12 Hours Date Time Temp Pulse Resp B/P (MAP) Pulse Ox O2 Delivery O2 Flow Rate FiO2 05/07/17 11:20 65 18 160/86 (110) 95 Nasal Cannula 4 05/07/17 11:10 68 18 124/88 (100) 95 Nasal Cannula 4 05/07/17 11:00 65 18 160/90 (113) 98 Mask 8 05/07/17 06:37 37 72 20 164/74 (104) 97 Room Air Notes Mental Status: alert / awake / arousable, participated in evaluation Pt Amnestic to Procedure: Yes Nausea / Vomiting: adequately controlled Pain: adequately controlled Airway Patency, RR, SpO2: stable & adequate BP & HR: stable & adequate Hydration State: stable & adequate Anesthetic Complications: no major complications apparent
[2017-05-07] MEDS ORDERED: IV FLUIDS COMPLETED PRN (11:30)
[2017-05-07] MEDS: OXYCODONE/ACETAMINOPHEN 5-325 TAB PO PRN ×2 (13:07→20:04)
--- NOTE | 2017-05-07 16:39 | OPERATIVE REPORT ---
DATE OF OPERATION: 05/07/2017 PREOPERATIVE DIAGNOSIS: Ischemic cardiomyopathy, left bundle branch block, chronic systolic heart failure, [place] Heart Association class 3. POSTOPERATIVE DIAGNOSIS: Same. PROCEDURE: Biventricular rate responsive implantable cardiac defibrillator implant under fluoroscopic guidance along with peripheral venogram. SURGEON: Dr. Luzmaria Simpson. FINANCIAL SERVICES SALES REPRESENTATIVE: None. ANESTHESIA: Monitored anesthetic care administered and supervised under anesthesia by anesthesiology department, a total of 2 mg of Versed, 100 mcg of fentanyl and 1100 mg of propofol. ESTIMATED BLOOD LOSS: Less than 15 mL. IV FLUIDS: 450 cc. COMPLICATIONS: None. CONDITION: Stable. URINE OUTPUT: Not applicable. SPECIMENS: None. FINDINGS: See below. DRAINS: None. INDICATIONS: This is a 77-year-old gentleman who has a past medical history for coronary artery disease in which he had anterior myocardial infarction back in 1994 that was medically treated with thrombolytics and no intervention was done. He did undergo PCI to the LAD back in 2003 as well as PCI to the circumflex and left PDA in December of this year 2016, ischemic cardiomyopathy back in 2001 30%. It did increase to 40% via MUGA after the PCI to the LAD in 2003. However, in December of 2016 it reduced down to 15% and 3 months later after the stent to the circumflex PDA is only improved to 25%, left bundle branch block, chronic systolic heart failure, [place] Heart Association class 3, hypertension, hyperlipidemia, chronic kidney disease stage III. He was recommended biventricular implantable cardiac defibrillator due to his ischemic cardiomyopathy, coronary artery disease, left bundle and heart failure. CONSENT: Consent was obtained prior to the patient going into the electrophysiology lab. The patient was informed of risks, benefits and alternatives to the procedure. Risks include but not limited to sudden cardiac , cardiac arrhythmias, cerebrovascular accident, myocardial infarction, injury to the blood vessels, chamber of the heart, lungs, bleeding and infection. The patient understood these risks and agreed to the procedure as planned. Informed consent was obtained. DESCRIPTION OF THE PROCEDURE: The patient was brought into the electrophysiology lab in a fasting state. He was connected to continuous cardiac monitoring. Time out was performed to ensure patient identity and procedure correctly. The patient received prophylactic antibiotics prior to incision. The patient was prepped and draped over the left infraclavicular space in a normal surgical standard fashion. He received monitored anesthetic care throughout the procedure for his comfort level via anesthesiology. [place] precautions were maintained throughout the procedure. 10 mL of 1% lidocaine, bupivacaine mixture were given in the left deltopectoral groove. Incision was made in left upper groove. Blunt dissection was performed down to try to identify the cephalic vein; however, none could be identified so we did a peripheral venogram using 10 mL of IV contrast diluted in 10 mL of saline followed by 20 mL flush. Axillary vein was identified and 2 separate axillary sticks were performed to gain venous access. The guidewire were inserted without any resistance. Through the more medial stick an 8-[place] sheath was inserted over the guidewire, the dilator was removed and a second guidewire was inserted through the 8-[place] sheath to allow for retained venous access. The 8-[place] sheath was then removed and through of the medial guidewires a 9.5-[place] sheath was then inserted over the guidewire without any resistance. The guidewire and dilator were removed. The right ventricular defibrillator lead was then advanced into the right ventricle and positioned into the right ventricular apex under fluoroscopic guidance. There was adequate pacing and sensing thresholds and no diaphragmatic stimulation with high output pacing. The 9.5 [place] sheath was peeled away and lead was affixed to the pectoralis muscle using 0 silk suture. Of note, I did reposition it once because there was some impedance variability as well as sensing variability. I don't think I was actually on any good tissue. An 8-[place] sheath was then inserted over the retained guidewire that was through the medial axillary stick without any resistance. The guidewire and dilator were removed. The right atrial pacing lead was then advanced into the right atrium and positioned into the right atrial appendage under fluoroscopic guidance. There was adequate pacing and sensing thresholds and no diaphragmatic stimulation with high output pacing. The 8-[place] sheath was peeled away and lead was fixated to the pectoralis muscle using 0 silk suture. A 9.5-[place] sheath was then advanced through the more lateral axillary stick without any resistance over the guidewire The dilator and guidewire were removed and then an MPX outer coronary sinus sheath from [employer] was advanced into the right atrium over a Glidewire. The Glidewire and dilator were removed and then a coronary sinus Decapolar EP diagnostic catheter from [employer] was used to cannulate the coronary sinus. The outer MPX sheath was then advanced over the EP diagnostic catheter into the coronary sinus. The EP diagnostic catheter was then removed and a balloon was placed through the MPX to do an angiogram of the coronary sinus. There was a nice lateral posterolateral branch right at the entrance of where the balloon was but I did pull back the MPX and did 1 more venogram. The balloon was then removed and a Whisper wire was advanced through the MPX to get out into the posterolateral branch. The lead was then tracked over the Whisper wire. There was adequate pacing and impedance and no diaphragmatic stimulation with high output pacing. The Whisper wire was then removed and a stylet was placed in the lead. The MPX was then pulled under fluoroscopic guidance out of the coronary sinus and then split under fluoroscopic guidance. The 9.5-[place] sheath was then split under fluoroscopic guidance, however the lead did pull back some so I took the stylet out and I put the Whisper wire back in and was able to recannulate with the Whisper the posterolateral branch. This time I was able to pull the lead, advance the lead over the Whisper wire and actually went out a little further. There was still adequate pacing and impedance and left the vessel loop in the right atrium. The lead was then affixed to the pectoralis muscle using 0 silk suture. Then, a defibrillator pocket was created over the pectoralis muscle within the pectoralis fascia using blunt dissection. A pocket was flushed with copious amounts of bacitracin saline wash and inspected for hemostasis. The defibrillator was then attached to the leads making sure that the pins were in appropriate position, passed the set screws and the set screws were all tightened. The defibrillator was then placed in the pocket, making sure that the leads were lying flat beneath the device. Abbey stat was placed in the pocket then the incision was closed in a 3-layer fashion using 2-0 Vicryl interrupted suture followed by 3-0 Vicryl interrupted suture followed by a 4-0 Monocryl running stitch. Dermabond was applied. EQUIPMENT: 1. Defibrillator generator is a [employer] SALES PERSON-D SureScan, model #JZCH334, serial #[id number]. 2. Right atrial lead Medtronic 5076-52 cm, serial #[id number]. 3. Right ventricular lead Medtronic 6935M-62 cm, serial #[id number]. 4. Left ventricular lead, Medtronic 4598-88 cm, serial #[id number]. INTRAOPERATIVE TESTIN. Right atrial lead: P-wave is 1.6 millivolts, impedance 639 ohms, threshold 0.8 volts at 1.2 milliamps. 2. Right ventricular lead: R-wave 5.9 millivolts, impedance 645 ohms, threshold 0.6 volts at 0.8 milliamps. 3. Left ventricular lead programmed bipolar, LV1-LV2, impedance 1093 ohms, threshold 0.4 volts at 0.3 milliamps. FINAL MEASUREMENTS THROUGH THE DEVICE: 1. Right atrial lead: P-wave 2.4 millivolts, impedance 494 ohms, threshold 0.5 volts at 0.4 milliseconds. 2. Right ventricular lead: R-wave 5.6 millivolts, impedance 513 ohms, threshold 0.5 volts at 0.4 milliseconds. 3. The RV coil was 82 ohms. 4. The LV lead programmed bipolar, LV1-LV2, impedance 893 ohms, threshold 0.5 volts at 0.4 milliseconds. FINAL PARAMETERS: 1. DDDR 60/130. The VF zone at 200 beats per minute with 30/40 detection intervals and VT zone of 167 beats per minute with 16 detection intervals and a monitor VT zone of 150 beats per minute with 32 detection intervals. 2. The right atrial and right ventricular program amplitude is 3.5 volts, pulse width 0.4 milliseconds, sensitivity 0.3 millivolts. 3. Left ventricular amplitude 4 volts, pulse width 0.4 milliseconds. IMPRESSION: Successful implantation of biventricular implantable cardiac defibrillator rate response under fluoroscopic guidance along with peripheral venogram secondary to ischemic cardiomyopathy, left bundle branch block, chronic systolic heart failure, [place] Heart Association class 3. PLAN: Monitor patient overnight, 12-lead ECG, chest x-ray. He cannot lift the left elbow over the left shoulder for 1 month. He cannot lift more than 10 pounds with the left arm for 2 weeks. He can shower tomorrow, let water run over the incision, do not scrub it. He should follow up in our [facility] device clinic in 7-10 days for wound check and device check. I attest to the content of the Intraoperative Record and any orders documented therein. Any exceptions are noted below. MTDD
[2017-05-07] MEDS ORDERED: METOPROLOL TARTRATE 100 MG TAB PO SCH (21:00)
[2017-05-07] MEDS ORDERED: MAGNESIUM OXIDE 400 MG TAB PO SCH (21:00)
[2017-05-07] MEDS ORDERED: ROSUVASTATIN CALCIUM 20 MG TAB PO SCH (21:00)
[2017-05-08 02:59] VITALS: BP 123/74; PULSE 68; TEMP 36.7; O2SAT 96
[2017-05-08] MEDS: OXYCODONE/ACETAMINOPHEN 5-325 TAB PO PRN (05:47)
[2017-05-08 07:11] VITALS: BP 103/67; PULSE 67; TEMP 36.8; O2SAT 94
--- NOTE | 2017-05-08 07:23 | DIAGNOSTIC IMAGING REPORT ---
TWO VIEW CHEST CLINICAL HISTORY: Status post pacemaker implantation.. FINDINGS: PA and lateral chest radiographs are compared to study dated 01/09/2017. A 3-lead cardiac pacemaker has been placed and partially obscures the left mid chest. Leads project over the right ventricle, the right atrial appendage, and the coronary sinus. The heart is enlarged and there is atherosclerotic calcification of the thoracic aorta. The mitral annulus appears densely calcified. The pulmonary vasculature is noncongested. Calcified pleural plaque is again suggested at the left lung base. Chronic interstitial thickening is similar to previous. There is bibasilar scarring versus atelectasis. No airspace consolidation is seen typical for pneumonia and no pleural effusion is identified. There is no pneumothorax. The skeletal structures are osteopenic. The bony thorax appears intact. Degenerative change is noted throughout the thoracic spine. IMPRESSION: 1. Status post AICD placement as above. No pneumothorax is seen. 2. Cardiomegaly without radiographic evidence of congestive failure. 3. Chronic parenchymal changes as above. No airspace consolidation or pleural effusion is identified. Electronically signed by: Timoteo Padron M.D. 05/08/2017 7:22 AM Dictated Date/Time: 05/08/2017 7:20 AM
[2017-05-08 08:00] VITALS: O2SAT 95
--- NOTE | 2017-05-08 08:38 | Cardiology Follow-Up ---
Subjective Subjective Date of Service: May 08, 2017. Pt evaluation today including: conversation w/ patient, physical exam, chart review, lab review, review of studies Pain: minimal at the incision site Review of Systems Constitutional: No fever, No weakness, No fatigue Respiratory: No cough, No shortness of breath, No dyspnea on exertion Cardiac: No chest pain, No edema, No palpitations Abdomen: No nausea, No diarrhea Objective Vital Signs Last Vital Signs Documentation Date Time Temp Pulse Resp B/P (MAP) Pulse Ox O2 Delivery O2 Flow Rate FiO2 05/08/17 08:00 95 Room Air 05/08/17 07:11 36.8 67 20 103/67 (79) 05/07/17 11:20 4 Physical Exam: General Appearance: no apparent distress Eyes: bilateral eyes PERRL, bilateral eyes EOMI Neck: supple, no JVD Respiratory/Chest: lungs clear, normal breath sounds Cardiovascular: regular rate, rhythm, no edema, no murmur Abdomen: non tender, soft Extremities: no pedal edema Neurologic/Psychiatric: alert, normal mood/affect, oriented x 3 Skin: warm/dry (left pectoral incision intact; no hematoma mild ecchymosis) Assessment and Plan Impression: 1. ICM s/p BiV ICD 2. CAD 3. LBBB 4. Chronic systolic HF, NYHA Class III 5. HTN 6. HLD Plan: -Ok for discharge home today -Device and wound check next week -Pt not allowed to lift the left elbow over the left shoulder for 1 month and lift more than 10 pounds with the left arm for 2 weeks -Can shower tomorrow Discharge planning: home Medications: Medications Administered Medications (Trade) Dose Ordered Sig/[place] Route Start Time Stop Time Status Last Admin Dose Admin Lactated Ringer's 1,000 ml @ 15 mls/hr Q24H IV 05/07/17 06:00 05/08/17 05:59 DC 05/07/17 07:08 15 MLS/HR Lidocaine HCl (Xylocaine 1% Inj (Local)) 40 ml STK-MED ONCE .ROUTE 05/07/17 07:37 05/07/17 07:38 DC 05/07/17 07:37 40 ML Heparin Sodium/ Sodium Chloride (Heparin Sod/Ns 2 Units/Ml) 2,000 unit STK-MED ONCE .ROUTE 05/07/17 07:37 05/07/17 07:38 DC 05/07/17 07:37 2,000 UNIT Bacitracin (Bacitracin Inj) 50,000 units STK-MED ONCE .ROUTE 05/07/17 07:37 05/07/17 07:38 DC 05/07/17 07:37 50,000 UNITS Oxycodone/ Acetaminophen (Percocet 5-325mg Tab) 1 tab for pain scale 4-6 2 t... Q6H PRN PO 05/07/17 11:15 05/21/17 11:14 05/08/17 05:47 2 TAB Aspirin (Ecotrin Tab) 81 mg QAM PO 05/08/17 09:00 06/07/17 08:59 05/08/17 07:24 81 MG Clopidogrel Bisulfate (plAVix TAB) 75 mg QAM PO 05/08/17 09:00 06/07/17 08:59 05/08/17 07:24 75 MG Magnesium Oxide (Mag-Ox Tab) 400 mg QPM PO 05/07/17 21:00 06/06/17 20:59 05/07/17 20:05 400 MG Metoprolol Tartrate (Lopressor Tab) 100 mg QPM PO 05/07/17 21:00 06/06/17 20:59 05/07/17 20:05 100 MG Rosuvastatin Calcium (Crestor Tab) 20 mg QPM PO 05/07/17 21:00 06/06/17 20:59 05/07/17 20:04 20 MG Spironolactone (Aldactone Tab) 12.5 mg Q2D@1000 PO 05/08/17 10:00 06/07/17 09:59 05/08/17 07:24 12.5 MG Lisinopril (Zestril Tab) 40 mg DAILY PO 05/08/17 09:00 06/07/17 08:59 05/08/17 07:24 40 MG Lab Results: Telemetry: AV paced-biv ECG: AV paced biv 69bpm CXR: No PTX Leads in position ICD Interrogation Today: RA: 3.3mv; 437ohms; 0.375V@0.4ms RV: 10mV; 380 ohms; 1.5V@0.4ms RV Coil: 57ohms LV: 855ohms; 0.5V@0.4ms
[2017-05-08 08:39] VITALS: BP 103/67; PULSE 67; TEMP 36.8; O2SAT 95
[2017-05-08] MEDS ORDERED: LISINOPRIL 20 MG TAB PO SCH (09:00)
[2017-05-08] MEDS ORDERED: ASPIRIN 81 MG ECTAB PO SCH (09:00)
[2017-05-08] MEDS ORDERED: CLOPIDOGREL BISULFATE 75 MG TAB PO SCH (09:00)
[2017-05-08] MEDS ORDERED: SPIRONOLACTONE 25 MG TAB PO SCH (10:00)
== END 2017-05-08 10:25 | disposition home or self-care (01) ==
LOC: C.ACU 06:02 → ENRESERV 10:25 → C.2T 11:45
PROVIDERS: ADMIT Internal Medicine; ATTEND Internal Medicine
DX: I25.5 Ischemic cardiomyopathy (principal); I44.7 Left bundle-branch block, unspecified; I50.22 Chronic systolic (congestive) heart failure; E78.5 Hyperlipidemia, unspecified; I13.0 Hypertensive heart and chronic kidney disease with heart failure and stage 1 through stage 4 chronic kidney disease, or unspecified chronic kidney disease; N18.3 Chronic kidney disease, stage 3 (moderate); I25.2 Old myocardial infarction